=== PATIENT | female | born 1960 | race Hispanic/Latino ===

== ENCOUNTER 2016-08-04 08:13 | Emergency (ER) | payer MEDICARE, MEDICAID ==
[2016-08-04] MEDS ORDERED: Ibuprofen 800 MG TAB ONE (09:16)
[2016-08-04] MEDS ORDERED: Acetaminophen 500 MG TAB ONE (09:16)
--- NOTE | 2016-08-04 09:38 | ERRECORD ---
[facility] EMERGENCY RECORD HPI HIP (09:06 ABUS) CHIEF COMPLAINT: Patient presents for evaluation of pain, to the left hip, Denies swelling to the ankle, Denies tenderness, Denies weakness. HISTORIAN: History provided by patient, 56 yr old F with known arthritis of the left hip here with acute worsening over the past 3 days and not improving with Tylenol #3. No numbness or tingling, loss of bowel or bladder activity, and can ambulate but it does hurt. MECHANISM OF INJURY: Unknown mechanism. LOCATION: Symptoms are localized, most severe to the left ilium. SEVERITY: Currently symptoms are moderate, Current severity of pain rated as 8/10. QUALITY: Pain is dull in nature, described as aching, described as throbbing. TIME COURSE: Gradual onset of symptoms, 3, days priror to arrival. ASSOCIATED WITH: No associated symptoms. EXACERBATED BY: Patient's condition exacerbated by nothing. RELIEVED BY: Patient's condition relieved by nothing. ROS (09:16 ABUS) CONSTITUTIONAL: Negative constitutional review of systems, Historian denies chills, denies fever. CARDIOVASCULAR: Negative cardiovascular review of systems, Historian denies chest pain, denies palpitations. RESPIRATORY: Negative respiratory review of systems, Historian denies cough, denies shortness of breath. GI: Negative gastrointestinal review of systems, Historian denies abdominal pain, denies constipation, denies diarrhea, denies nausea, denies vomiting. GENITOURINARY FEMALE: Negative genitourinary review of systems, Historian denies dysuria, denies frequency. MUSCULOSKELETAL: Historian reports arthralgias, denies back pain, denies deformity, denies fall, denies injury, denies joint stiffness, denies joint swelling, denies myalgias. SKIN: Negative skin review of systems, Historian denies rash, denies skin changes. NEUROLOGIC: Negative neurologic review of systems, Historian denies headache. HEMO/LYMPHATIC: Normal hematologic/lymphatic system review, Historian denies abnormal blood clotting. PAST MEDICAL HISTORY (08:39 JPER) MEDICAL HISTORY: Notes: VERIFIED 08-04-16, Flu vaccine up to date, Tetanus immunization up to date, Pneumococcal vaccine not up to date, Past medical history includes history of hypertension, Past medical history includes history of hypertension, which has been treated, Patient is noncompliant, Past medical history includes history of hypertension, which has been treated, . ANEMIA. ARTHRITIS. FEMALE SURGICAL HISTORY: VERIRFIED 08-04-16, Patient's surgical history is not relevant to the management of &a-1R&a+25V*p+0X*[id number]*c152B*c15G*c2P*p-0X&a-25V&a+1RName: Jenna Aleman : 1960 F56 MedRec: [id number] AcctNum: [id number] Prepared: ThuAug 04, 2016 09:29 by Interface Page [address] [facility] EMERGENCY RECORD the case, Surgical history of section, Surgical history of hysterectomy, Surgical history of section, Surgical history of hysterectomy, BACK SURGERY,. PSYCHIATRIC HISTORY: Notes: NONE. SOCIAL HISTORY: Social History includes VERIFIED 08-04-16, Patient denies alcohol use, Patient denies drug use, Patient currently uses tobacco, smokes cigarettes, Lives at home, with family, Patient denies alcohol use, Patient denies drug use, Patient currently uses tobacco, smokes cigarettes, Patient smokes 1 PACK PER 2 DAYS, Patient denies alcohol use, Patient denies drug use, Patient currently uses tobacco, smokes cigarettes, Patient smokes 1/2 packs per day,. Patient denies alcohol use, Patient denies drug use, Patient currently uses tobacco. FAMILY HISTORY: No known family hisotry. KNOWN ALLERGIES Sulfa (Sulfonamide Antibiotics): Reaction: Hives, Severity: Moderate, Source: Patient CURRENT MEDICATIONS (08:39 JPER) lisinopril: TABLET : Strength - 10 mg : ORAL Patient Dose: 2 tab(s) Oral once a day (in the morning). Fioricet: TABLET : Strength - 50 mg-325 mg-40 mg : ORAL Patient Dose: 2 tab(s) Oral every 4 hours prn. fluticasone: SPRAY, SUSPENSION : Strength - 50 mcg : NASAL Patient Dose: 2 spray(s) NASAL once a day.2 squirts each nostril daily for congestion and drainage. Advair Diskus: BLISTER, WITH INHALATION DEVICE : Strength - 250 mcg-50 mcg/Dose : INHALATION Patient Dose: 2 puff(s) 2 times a day. Flexeril: TABLET : Strength - 5 mg : ORAL Patient Dose: 5 mg Oral every 8 hours PRN. naproxen: TABLET : Strength - 500 mg : ORAL Patient Dose: 1 tab(s) Oral once a day (at bedtime). Tylenol-Codeine #3: TABLET : Strength - 300 mg-30 mg : ORAL Patient Dose: 1-2 tab(s) Oral every 4 hours prn. VITAL SIGNS VITAL SIGNS: BP: 178/104, Pulse: 87, Resp: 18, Temp: 97.8 (Oral), O2 sat: 100 on Room Air, Time: 08/04/2016 08:35. (08:35 JPER) BP: 166/98, Pulse: 80, Resp: 18, Temp: 97.8, O2 sat: 100 on RA, Time: 08/04/2016 09:25. (09:25 JPER) PHYSICAL EXAM (09:16 ABUS) &a-1R&a+25V*p+0X*[id number]*c152B*c15G*c2P*p-0X&a-25V&a+1RName: Jenna Aleman : 1960 F56 MedRec: [id number] AcctNum: [id number] Prepared: ThuAug 04, 2016 09:29 by Interface Page [address] [facility] EMERGENCY RECORD CONSTITUTIONAL: Vital signs reviewed, Patient afebrile, Pulse normal, Blood pressure normal, Respiratory rate normal, Patient appears non toxic, Patient appears pain free, Patient alert and oriented to person, place and time. NECK: Neck exam normal, Neck exam included findings of normal range of motion, Trachea midline, no meningeal signs, no cervical adenopathy, no tenderness. RESPIRATORY CHEST: Respiratory and chest exam normal, Respiratory exam included findings of no respiratory distress, Breath sounds clear. CARDIOVASCULAR: Cardiovascular assessment normal, Cardiovascular exam included findings of heart rate regular rate and rhythm, Heart sounds normal. ABDOMEN FEMALE: Abdominal exam included findings of abdomen nontender, Bowel sounds normal, no distension, no mass, no pulsatile masses, no peritoneal signs, no rigidity, no guarding, no rebound, Rovsing's sign absent. BACK: Back exam normal, Back exam included findings of normal inspection, range of motion normal, no tenderness. LOWER EXTREMITY: Motor strength normal, Sensation intact, Posterior tibial pulse normal, Pedal pulse normal, distal pulses intact, capillary refill less than 2 seconds, distal motor intact, distal sensory intact, no cyanosis, no clubbing, no edema, tenderness to the left hip. NEURO: Neuro exam normal, Neuro exam findings include patient oriented to person, place and time, Speech normal, Gait normal, Sensation intact to major dermatomes of the lower extremity (left). SKIN: Skin exam normal, Skin exam included findings of skin warm, dry, and normal in color, no rash. MEDICATION ADMINISTRATION SUMMARY Drug Name: ibuprofen, Dose Ordered: 800 mg, Route: Oral, Status: Given, Time: 09:22 08/04/2016, Drug Name: acetaminophen oral, Dose Ordered: 500 mg, Route: Oral, Status: Given, Time: :08/04/2016, Drug Name: acetaminophen oral, Dose Ordered: 500 mg, Route: Oral, Status: Given, Time: 09:21 08/04/2016, Detailed record available in Medication Service section. DOCTOR NOTES (09:18 ABUS) TEXT: 56 yr old F with known arthritis of the left hip here with acute worsening over the past 3 days and not improving with Tylenol #3. No numbness or tingling, loss of bowel or bladder activity, and can ambulate but it does hurt. EXAM: Normal neuro (motor and sensory) exam of the left lower extremity with some limitation due to apparent pain. Normal pulses and skin temp to the left foot. DDX: Arthritis, Muscle strain, Muscle Spasm, Ligamentous Injury, Contusion, Soft Tissue Injury, Degenerative Joint Disease &a-1R&a+25V*p+0X*[id number]*c152B*c15G*c2P*p-0X&a-25V&a+1RName: Jenna Aleman : 1960 F56 MedRec: [id number] AcctNum: [id number] Prepared: ThuAug 04, 2016 09:29 by Interface Page [address] [facility] EMERGENCY RECORD PLAN: Analgesics Final Dispo: Dx: Arthralgia. D/C Home with regular follow up and return precautions. All results of testing and evaluation were shared with the patient who verbalized understanding and agreement with the plan of care. Level of Complexity / Medical Decision Making: low. PROBLEM LIST No recorded problems DIAGNOSIS (09:05 ABUS) FINAL: PRIMARY: Arthralgia of left hip. PRESCRIPTION (09:03 ABUS) traMADol: TABLET : 50 mg : ORAL : Quantity: 1 Unit: tab(s) Route: ORAL Schedule: every 8 hours PRN Dispense: 5 Unit: tab(s) May substitute. Refills: No Refills POTENTIAL SEVERE INTERACTION: Flexeril Override Rationale: Patient no longer on medication. NOTES: No Refills. ibuprofen: TABLET : 800 mg : ORAL : Quantity: 1 Unit: tab(s) Route: ORAL Schedule: every 8 hours PRN Dispense: 12 Unit: tab(s) May substitute. Refills: No Refills . NOTES: ^s=No Refills No Refills. DISPOSITION PATIENT: Disposition Type: Discharge, Disposition: *Discharge Home, Condition: Good. (09:05 ABUS) Patient left the department. (09:26 JEFE) Grant: PRASHANT=MD Renee, Armando MAYBERRY=KISHA Brothers, Tammy &a-1R&a+25V*p+0X*[id number]*c152B*c15G*c2P*p-0X&a-25V&a+1RName: Jenna Aleman : 1960 F56 MedRec: [id number] AcctNum: [id number] Prepared: ThuAug 04, 2016 09:29 by Interface Page 4 of 4 pMD MTDD
--- NOTE | 2016-08-04 09:47 | PICIS ---
[facility] EMERGENCY RECORD TRIAGE (08:39 JPER) PATIENT: NAME: Jenna Aleman, AGE: 56, GENDER: female, : Sat 1960, TIME OF GREET: ThuAug 04, 2016 08:13, PREFERRED LANGUAGE: Portuguese, RACE: or , ETHNICITY: or , FALL RISK: NO, ECODE BILLING MAP: [facility], SSN: [id number], Zip Code: [address], KG WEIGHT: 93.89, PHONE: , , , PERSON ID: [id number], PCP: DO Cooper Hillary. (08:39 JPER) COMPLAINT: LT HIP & LEG PAIN. (08:39 JPER) ADMISSION: URGENCY: 4 Non Urgent, ADMISSION SOURCE: Home, TRANSPORT: Walk-in, BED: ED -03. (08:39 JPER) ASSESSMENT: Assessment: PT C/O FLARE UP OF CHRONIC LEFT HIP AND LEG PAIN; WAS UNABLE TO GO TO WORK TODAY; SAYS SHE HAS THIS X 10 DAYS WORSENING. (08:39 JPER) PAIN: Patient complains of pain described as, shooting, on a scale 0-10 patient rates pain as 10, Pain is constant, No aggravating factors, No relieving factors. (08:39 JPER) IMMUNIZATIONS: Flu vaccine up to date, Tetanus immunization up to date, Pneumococcal vaccine up to date. (08:39 JPER) SIRS SCORING: Heart Rate 55-109 (0), Temp range 96.8-101.1 (0), respiratory rate 12-24 (0), Mental Status altered: no (0). (08:39 JPER) TRIAGE SCREENING: Patient denies suicidal ideation, Patient denies presence of domestic violence. (08:39 JPER) PROVIDERS: TRIAGE NURSE: Tammy Brothers RN. (08:39 JPER) VITAL SIGNS: BP 178/104, Pulse 87, Resp 18, Temp 97.8, (Oral), O2 Sat 100, on Room Air, Time 08/04/2016 08:35. (08:35 JPER) PREVIOUS VISIT ALLERGIES: Sulfa (Sulfonamide Antibiotics). (08:39 JPER) KNOWN ALLERGIES Sulfa (Sulfonamide Antibiotics): Reaction: Hives, Severity: Moderate, Source: Patient CURRENT MEDICATIONS (08:39 JPER) lisinopril: TABLET : Strength - 10 mg : ORAL Patient Dose: 2 tab(s) Oral once a day (in the morning). Fioricet: TABLET : Strength - 50 mg-325 mg-40 mg : ORAL Patient Dose: 2 tab(s) Oral every 4 hours prn. fluticasone: SPRAY, SUSPENSION : Strength - 50 mcg : NASAL Patient Dose: 2 spray(s) NASAL once a day.2 squirts each nostril daily for congestion and drainage. Advair Diskus: BLISTER, WITH INHALATION DEVICE : Strength - 250 mcg-50 mcg/Dose : INHALATION Patient Dose: 2 puff(s) 2 times a day. Flexeril: &a-1R&a+25V*p+0X*l1564A*c152B*c15G*c2P*p-0X&a-25V&a+1RName: Jenna Aleman : 1960 F56 MedRec: [id number] AcctNum: [id number] Prepared: ThuAug 04, 2016 09:35 by Interface Page 1 of 7 pMD [facility] EMERGENCY RECORD TABLET : Strength - 5 mg : ORAL Patient Dose: 5 mg Oral every 8 hours PRN. naproxen: TABLET : Strength - 500 mg : ORAL Patient Dose: 1 tab(s) Oral once a day (at bedtime). Tylenol-Codeine #3: TABLET : Strength - 300 mg-30 mg : ORAL Patient Dose: 1-2 tab(s) Oral every 4 hours prn. VITAL SIGNS VITAL SIGNS: BP: 178/104, Pulse: 87, Resp: 18, Temp: 97.8 (Oral), O2 sat: 100 on Room Air, Time: 08/04/2016 08:35. (08:35 JPER) BP: 166/98, Pulse: 80, Resp: 18, Temp: 97.8, O2 sat: 100 on RA, Time: 08/04/2016 09:25. (09:25 JPER) NURSING ASSESSMENT: EXTREMITY LOWER (08:45 JPER) CONSTITUTIONAL: Patient arrives ambulatory, Gait steady, History obtained from patient, Patient appears, uncomfortable, Patient cooperative, Patient alert, Oriented to person, place and time, Skin warm, Skin dry, Skin normal in color, Mucous membranes pink, Mucous membranes moist, Patient is well-groomed, Patient complains of LEFT HIP AND LEG PAIN. PAIN: shooting pain, to the left hip, to the left upper leg, to the left lower leg, on a scale 0-10 patient rates pain as 10, Pain exacerbated by nothing, Nothing has been tried to alleviate the pain. LEFT LOWER EXTREMITY: Left lower extremity assessment findings include capillary refill less than 2 seconds, Skin color normal, Skin temperature warm, Distal sensation intact, Muscle tone normal. RIGHT LOWER EXTREMITY: Right lower extremity assessment findings include capillary refill less than 2 seconds, Skin color normal, Skin temperature warm, Distal sensation intact, Muscle tone normal. NOTES: Emotional support needed and given. NURSING PROCEDURE: DISCHARGE NOTE (09:25 JPER) DISCHARGE: Patient discharged to home, ambulating without assistance, driving self, unaccompanied, Summary of Care printed/ provided, Patient requested and was provided an electronic copy of Discharge Instructions, Transition record given to patient, Discharge instructions given to patient, Prescriptions given and instructions on side effects given, Above person(s) verbalized understanding of discharge instructions and follow-up care, Patient treated and evaluated by physician. BELONGINGS: Belongings remain with patient, Valuables remain with patient. NOTES: Emotional support needed and given, Patient tolerated procedure well. VITAL SIGNS: BP: 166, / 98, Pulse: 80, Resp: 18, Temp: 97.8, O2 sat: 100, on: RA. MEDICATION ADMINISTRATION SUMMARY &a-1R&a+25V*p+0X*f4750W*c152B*c15G*c2P*p-0X&a-25V&a+1RName: AshJenna : 1960 F56 MedRec: [id number] AcctNum: [id number] Prepared: ThuAug 04, 2016 09:35 by Interface Page 2 of 7 pMD [facility] EMERGENCY RECORD Drug Name: ibuprofen, Dose Ordered: 800 mg, Route: Oral, Status: Given, Time: 09:22 08/04/2016, Drug Name: acetaminophen oral, Dose Ordered: 500 mg, Route: Oral, Status: Given, Time: 09:08/04/2016, Drug Name: acetaminophen oral, Dose Ordered: 500 mg, Route: Oral, Status: Given, Time: 09:21 08/04/2016, Detailed record available in Medication Service section. MEDICATION SERVICE acetaminophen oral: Order: acetaminophen oral (acetaminophen) - Dose: 500 mg : Oral Schedule: Now Ordered by: Armando Duran MD Entered by: Armando Duran MD ThuAug 04, 2016 09:15 Documented as given by: Tammy Brothers RN ThuAug 04, 2016 09:21 Patient, Medication, Dose, Route and Time verified prior to administration. Amount given: 500MG, Site: Medication administered P.O., Correct patient, time, route, dose and medication confirmed prior to administration, Patient advised of actions and side-effects prior to administration, Allergies confirmed and medications reviewed prior to administration, Administered by CORDELL BEARD. acetaminophen oral: Order: acetaminophen oral (acetaminophen) - Dose: 500 mg : Oral Schedule: Now Ordered by: Armando Duran MD Entered by: Armando Duran MD ThuAug 04, 2016 09:02 Documented as given by: Tammy Brothers RN ThuAug 04, 2016 09:22 Patient, Medication, Dose, Route and Time verified prior to administration. Amount given: 500MG, Site: Medication administered P.O., Correct patient, time, route, dose and medication confirmed prior to administration, Patient advised of actions and side-effects prior to administration, Allergies confirmed and medications reviewed prior to administration, Administered by CORDELL BEARD. ibuprofen: Order: ibuprofen - Dose: 800 mg : Oral Schedule: Now Ordered by: Armando Duran MD Entered by: Armando Duran MD ThuAug 04, 2016 08:59 Documented as given by: Tammy Brothers RN ThuAug 04, 2016 09:22 Patient, Medication, Dose, Route and Time verified prior to administration. Amount given: 800MG, Site: Medication administered P.O., Correct patient, time, route, dose and medication confirmed prior to administration, Patient advised of actions and side-effects prior to administration, Allergies confirmed and medications reviewed prior to administration, Administered by CORDELL BEARD, Patient in position of comfort, Side rails up, Cart in lowest position, Family at bedside. HPI HIP (09:06 ABUS) &a-1R&a+25V*p+0X*[id number]*c152B*c15G*c2P*p-0X&a-25V&a+1RName: Jenna Aleman : 1960 F56 MedRec: [id number] AcctNum: [id number] Prepared: ThuAug 04, 2016 09:35 by Interface Page 3 of 7 pMD [facility] EMERGENCY RECORD CHIEF COMPLAINT: Patient presents for evaluation of pain, to the left hip, Denies swelling to the ankle, Denies tenderness, Denies weakness. HISTORIAN: History provided by patient, 56 yr old F with known arthritis of the left hip here with acute worsening over the past 3 days and not improving with Tylenol #3. No numbness or tingling, loss of bowel or bladder activity, and can ambulate but it does hurt. MECHANISM OF INJURY: Unknown mechanism. LOCATION: Symptoms are localized, most severe to the left ilium. SEVERITY: Currently symptoms are moderate, Current severity of pain rated as 8/10. QUALITY: Pain is dull in nature, described as aching, described as throbbing. TIME COURSE: Gradual onset of symptoms, 3, days priror to arrival. ASSOCIATED WITH: No associated symptoms. EXACERBATED BY: Patient's condition exacerbated by nothing. RELIEVED BY: Patient's condition relieved by nothing. ROS (09:16 ABUS) CONSTITUTIONAL: Negative constitutional review of systems, Historian denies chills, denies fever. CARDIOVASCULAR: Negative cardiovascular review of systems, Historian denies chest pain, denies palpitations. RESPIRATORY: Negative respiratory review of systems, Historian denies cough, denies shortness of breath. GI: Negative gastrointestinal review of systems, Historian denies abdominal pain, denies constipation, denies diarrhea, denies nausea, denies vomiting. GENITOURINARY FEMALE: Negative genitourinary review of systems, Historian denies dysuria, denies frequency. MUSCULOSKELETAL: Historian reports arthralgias, denies back pain, denies deformity, denies fall, denies injury, denies joint stiffness, denies joint swelling, denies myalgias. SKIN: Negative skin review of systems, Historian denies rash, denies skin changes. NEUROLOGIC: Negative neurologic review of systems, Historian denies headache. HEMO/LYMPHATIC: Normal hematologic/lymphatic system review, Historian denies abnormal blood clotting. PAST MEDICAL HISTORY (08:39 JPER) MEDICAL HISTORY: Notes: VERIFIED 08-04-16, Flu vaccine up to date, Tetanus immunization up to date, Pneumococcal vaccine not up to date, Past medical history includes history of hypertension, Past medical history includes history of hypertension, which has been treated, Patient is noncompliant, Past medical history includes history of hypertension, which has been treated, . ANEMIA. ARTHRITIS. FEMALE SURGICAL HISTORY: VERIRFIED 08-04-16, Patient's surgical history is not relevant to the management of the case, Surgical history of section, Surgical history of &a-1R&a+25V*p+0X*a3999Y*c152B*c15G*c2P*p-0X&a-25V&a+1RName: Jenna Aleman : 1960 F56 MedRec: [id number] AcctNum: [id number] Prepared: ThuAug 04, 2016 09:35 by Interface Page 4 of 7 pMD [facility] EMERGENCY RECORD hysterectomy, Surgical history of section, Surgical history of hysterectomy, BACK SURGERY,. PSYCHIATRIC HISTORY: Notes: NONE. SOCIAL HISTORY: Social History includes VERIFIED 08-04-16, Patient denies alcohol use, Patient denies drug use, Patient currently uses tobacco, smokes cigarettes, Lives at home, with family, Patient denies alcohol use, Patient denies drug use, Patient currently uses tobacco, smokes cigarettes, Patient smokes 1 PACK PER 2 DAYS, Patient denies alcohol use, Patient denies drug use, Patient currently uses tobacco, smokes cigarettes, Patient smokes 1/2 packs per day,. Patient denies alcohol use, Patient denies drug use, Patient currently uses tobacco. FAMILY HISTORY: No known family hisotry. PHYSICAL EXAM (09:16 ABUS) CONSTITUTIONAL: Vital signs reviewed, Patient afebrile, Pulse normal, Blood pressure normal, Respiratory rate normal, Patient appears non toxic, Patient appears pain free, Patient alert and oriented to person, place and time. NECK: Neck exam normal, Neck exam included findings of normal range of motion, Trachea midline, no meningeal signs, no cervical adenopathy, no tenderness. RESPIRATORY CHEST: Respiratory and chest exam normal, Respiratory exam included findings of no respiratory distress, Breath sounds clear. CARDIOVASCULAR: Cardiovascular assessment normal, Cardiovascular exam included findings of heart rate regular rate and rhythm, Heart sounds normal. ABDOMEN FEMALE: Abdominal exam included findings of abdomen nontender, Bowel sounds normal, no distension, no mass, no pulsatile masses, no peritoneal signs, no rigidity, no guarding, no rebound, Rovsing's sign absent. BACK: Back exam normal, Back exam included findings of normal inspection, range of motion normal, no tenderness. LOWER EXTREMITY: Motor strength normal, Sensation intact, Posterior tibial pulse normal, Pedal pulse normal, distal pulses intact, capillary refill less than 2 seconds, distal motor intact, distal sensory intact, no cyanosis, no clubbing, no edema, tenderness to the left hip. NEURO: Neuro exam normal, Neuro exam findings include patient oriented to person, place and time, Speech normal, Gait normal, Sensation intact to major dermatomes of the lower extremity (left). SKIN: Skin exam normal, Skin exam included findings of skin warm, dry, and normal in color, no rash. EVENTS TRANSFER: Triage to Emergency Main ED -03. (ThuAug 04, 2016 08:39 JPER) Removed from Emergency Main ED -03. (09:26 JPER) &a-1R&a+25V*p+0X*j5458S*c152B*c15G*c2P*p-0X&a-25V&a+1RName: Jenna Aleman : 1960 F56 MedRec: [id number] AcctNum: [id number] Prepared: ThuAug 04, 2016 09:35 by Interface Page 5 of 7 pMD [facility] EMERGENCY RECORD DOCTOR NOTES (09:18 ABUS) TEXT: 56 yr old F with known arthritis of the left hip here with acute worsening over the past 3 days and not improving with Tylenol #3. No numbness or tingling, loss of bowel or bladder activity, and can ambulate but it does hurt. EXAM: Normal neuro (motor and sensory) exam of the left lower extremity with some limitation due to apparent pain. Normal pulses and skin temp to the left foot. DDX: Arthritis, Muscle strain, Muscle Spasm, Ligamentous Injury, Contusion, Soft Tissue Injury, Degenerative Joint Disease PLAN: Analgesics Final Dispo: Dx: Arthralgia. D/C Home with regular follow up and return precautions. All results of testing and evaluation were shared with the patient who verbalized understanding and agreement with the plan of care. Level of Complexity / Medical Decision Making: low. PROBLEM LIST No recorded problems DIAGNOSIS (09:05 ABUS) FINAL: PRIMARY: Arthralgia of left hip. DISPOSITION PATIENT: Disposition Type: Discharge, Disposition: *Discharge Home, Condition: Good. (09:05 ABUS) Patient left the department. (09:26 JPER) INSTRUCTION (09:06 ABUS) DISCHARGE: ARTHRALGIA. FOLLOWUP: DO Cooper Hillary, [facility], [address] [place] [address], , Follow up with Primary Care Physician in 2-3 days. SPECIAL: As discussed in the ED, please keep any upcoming appointments with your primary doctor or call the referral provided to you today to establish a follow up evaluation or ongoing medical care. Please come back if you start to have fever, vomiting, worsening leg pain, difficulty walking, or any symptoms that concern you. PRESCRIPTION (09:03 ABUS) traMADol: TABLET : 50 mg : ORAL : Quantity: 1 Unit: tab(s) Route: ORAL Schedule: every 8 hours PRN Dispense: 5 Unit: tab(s) May substitute. Refills: No Refills POTENTIAL SEVERE INTERACTION: Flexeril Override Rationale: Patient no longer on medication. NOTES: No Refills. ibuprofen: TABLET : 800 mg : ORAL : Quantity: 1 Unit: tab(s) Route: ORAL Schedule: every 8 hours PRN Dispense: 12 Unit: tab(s) &a-1R&a+25V*p+0X*e5455U*c152B*c15G*c2P*p-0X&a-25V&a+1RName: Jenna Aleman : 1960 F56 MedRec: [id number] AcctNum: [id number] Prepared: ThuAug 04, 2016 09:35 by Interface Page 6 of 7 pMD [facility] EMERGENCY RECORD May substitute. Refills: No Refills . NOTES: ^s=No Refills No Refills. IMAGING (09:25 JPER) *DISCHARGE INSTRUCTIONS RECEIPT: Image captured from scanner. *SUPPLY CHARGE SHEET: Image captured from scanner. ADMIN DIGITAL SIGNATURE: MD Duran Anthony. (09:20 PRASHANT) KISHA Brothers Jana. (09:26 JEFE) Grant: PRASHANT=MD Duran Anthony JPER=KISHA Brothers Jana &a-1R&a+25V*p+0X*b6505S*c152B*c15G*c2P*p-0X&a-25V&a+1RName: Jenna Aleman : 1960 F56 MedRec: [id number] AcctNum: [id number] Prepared: ThuAug 04, 2016 09:35 by Interface Page 7 of 7 pMD MTDD
== END 2016-08-04 09:25 | disposition home or self-care (01) ==
LOC: MADERS 08:13
DX: M25.552 Pain in left hip (principal); I10 Essential (primary) hypertension; Z79.899 Other long term (current) drug therapy
CPT/HCPCS: 99283

== ENCOUNTER 2016-08-30 17:02 | Emergency (ER) | payer MEDICAID, MEDICARE, OTHER ==
[2016-08-30] MEDS ORDERED: Ketorolac Tromethamine 30 MG/ML VIAL ONE (18:35)
--- NOTE | 2016-08-30 19:47 | RAD ---
LEFT FEMUR TWO VIEW 08/30/16 HISTORY: Pain COMPARISON: None. FINDINGS: No acute fracture or malalignment. No significant suprapatellar effusion. IMPRESSION: No acute fracture or malalignment left femur. POS: [facility]
--- NOTE | 2016-08-30 20:24 | RAD ---
LEFT HIP TWO VIEW 08/30/16 HISTORY: Pain. COMPARISON: None. FINDINGS: No acute fracture or malalignment. There are ring osteophytes of the femoral head and neck junction. IMPRESSION: Ring osteophytes femoral head and neck junction without acute fracture or malalignment. POS: [facility]
== END 2016-08-30 18:45 | disposition home or self-care (01) ==
LOC: MADERS 17:02
DX: M16.12 Unilateral primary osteoarthritis, left hip (principal); I10 Essential (primary) hypertension; F17.210 Nicotine dependence, cigarettes, uncomplicated
CPT/HCPCS: 96372; J1885

== ENCOUNTER 2016-10-11 19:45 | Emergency (ER) | payer MEDICARE, MEDICAID ==
[2016-10-11] MEDS ORDERED: Ondansetron ODT 4 MG TAB ONE (20:11)
[2016-10-11] MEDS ORDERED: Naproxen 500 MG TAB ONE (20:11)
[2016-10-11] MEDS ORDERED: AMOXicillin 250 MG CAP ONE (20:11)
== END 2016-10-11 20:20 | disposition home or self-care (01) ==
LOC: MADERS 19:45
DX: H65.93 Unspecified nonsuppurative otitis media, bilateral (principal); I10 Essential (primary) hypertension; F17.210 Nicotine dependence, cigarettes, uncomplicated; Z79.899 Other long term (current) drug therapy
CPT/HCPCS: 99283; Q0162

== ENCOUNTER 2016-10-14 18:21 | Emergency (ER) | payer MEDICAID, MEDICARE, OTHER ==
[~2016-10-14 18:21] MED LIST: Sodium Chloride 0.9% 1,000 ML BAG ONE; Sodium Chloride 0.9% 100 ML BAG ONE
[2016-10-14] MEDS ORDERED: methylPREDNISolone Sod Succ/PF 125 MG/2 ML VIAL ONE (19:10)
[2016-10-14] MEDS ORDERED: Piperacillin/Tazobactam 3.375 GM VIAL ONE (19:10)
[2016-10-14 19:17] LABS: ALT (SGPT) 21 U/L (0-55); AST (SGOT) 16 U/L (5-34); Albumin 3.9 g/dL (3.5-5.0); Alkaline Phosphatase 78 U/L (40-150); Anion Gap 13 mmol/L (10-20); BUN (Urea Nitrogen) 14 mg/dL (9.8-20.1); Bilirubin, Total Less than 0.3 mg/dL (0.2-1.2); Calc. Creatinine Clearance 0 mL/min (70-130); Calcium 9.3 mg/dL (7.8-10.44); Carbon Dioxide 25 mmol/L (22-29); Chloride 108 mmol/L (98-107); Estimated GFR-MDRD 77; Globulin 3.1 g/dL (2.4-3.5); Glucose 99 mg/dL (70-105); Sodium 142 mmol/L (136-145)
[2016-10-14 19:18] LABS: MONO NEGATIVE CONTROL ZONE White (Negative) (White); MONO POSITIVE CONTROL Pink Line (Positive) (PINK/RED); Mononucleosis NEGATIVE (NEGATIVE)
[2016-10-14 19:33] LABS: Band 3 % (5-11); Eosinophils 2 % (0-10); Hemoglobin 13.9 g/dL (12.0-16.0); Lymphocytes 4 % (21-51); MDiff Complete? YES; Mean Corpuscular HGB CONC 32.5 g/dL (32.0-36.0); Mean Corpuscular Hemoglobin 29.6 pg (27.0-31.0); Mean Platelet Volume 7.7 fL (7.4-10.4); Monocytes 5 % (0-10); Neutrophil 86 % (42-75); Platelet Count 234 thou/uL (130-400); RBC Distribution Width 12.6 % (11.5-14.5); Red Blood Cell (RBC) Count 4.71 mill/uL (4.20-5.40); White Blood Cell (WBC) Count 16.6 thou/uL (4.8-10.8)
--- NOTE | 2016-10-14 21:20 | RAD ---
TWO VIEWS NECK SOFT TISSUES 10/14/16 HISTORY: Throat pain. FINDINGS: The epiglottis does appear mildly prominent on this exam. However, the airway is patent at this leve l. Prevertebral soft tissues are within normal limits. Degenerative changes are seen in the cervical spine. IMPRESSION: Mild prominence of the epiglottis. Epiglottitis could not be entirely excluded based on this exam. T he airway does appear patent based on lateral view. POS: [facility]
== END 2016-10-14 20:41 | disposition short-term general hospital (02) ==
LOC: MADERS 18:21
DX: J02.9 Acute pharyngitis, unspecified (principal); I10 Essential (primary) hypertension; J45.909 Unspecified asthma, uncomplicated; D64.9 Anemia, unspecified; F17.210 Nicotine dependence, cigarettes, uncomplicated; Z79.2 Long term (current) use of antibiotics; Z79.899 Other long term (current) drug therapy
CPT/HCPCS: 36415; 70360; 80053; 85025; 86308; 87081; 87430; 94640; 96365; 96375; J2543; J2930; J7050

== ENCOUNTER 2017-02-01 18:20 | Emergency (ER) | payer OTHER, MEDICARE ==
[2017-02-01 18:58] LABS: Clarity Clear (Clear); Specific Gravity, Urine 1.028 (1.002-1.036)
[2017-02-01 18:59] LABS: Bacteria/HPF 1+ HPF (None Seen); Bilirubin Negative (Negative); Blood, Urine Moderate (Negative); Glucose, Urine (Dipstick) Negative (Negative); Hyaline Casts/LPF NONE SEEN LPF (0-3 Hyaline); Leukocyte Negative (Negative); Nitrite Negative (Negative); Protein, Urine (Dipstick) 30 mg/dL (Neg-Trace); RBC/HPF 0-3 HPF (0-3); Urobilinogen 0.2 mg/dL (0.2-1.0); WBC/HPF 0-3 HPF (0-3)
[2017-02-01] MEDS ORDERED: Naproxen 500 MG TAB ONE (19:25)
[2017-02-01] MEDS ORDERED: HYDROcodone/Acetaminophen 10/325 mg Tablet ONE (19:25)
[2017-02-01] MEDS ORDERED: Ciprofloxacin 500 MG TAB ONE (20:29)
[2017-02-01] MEDS ORDERED: Phenazopyridine HCl 97.5 MG TABLET ONE (20:29)
--- NOTE | 2017-02-01 22:00 | CT ---
CT ABDOMEN AND PELVIS WITHOUT CONTRAST: Clinical history: Right sided abdominal pain. FINDINGS: Absence of oral and IV contrast reduces the sensitivity of the exam to evaluate solid organs and bow el. The lungs bases are unremarkable. No free air or free fluid is seen in the abdomen or pelvis. No katarina cified gallstones are identified. A normal appearing appendix is noted. No calculi are noted in the kidneys, ureters, or urinary bladder. There are vascular calcifications without evidence of aneurysm al dilatation of the abdominal aorta. There are mild degenerative changes in the spine. IMPRESSION: No CT evidence of renal calculi, obstruction, or appendicitis. POS: [facility]
== END 2017-02-01 20:36 | disposition home or self-care (01) ==
LOC: MADERS 18:20
DX: R30.0 Dysuria (principal); R31.9 Hematuria, unspecified; J45.909 Unspecified asthma, uncomplicated; I10 Essential (primary) hypertension; D64.9 Anemia, unspecified; F17.210 Nicotine dependence, cigarettes, uncomplicated
CPT/HCPCS: 74176; 87086

== ENCOUNTER 2017-02-24 16:55 | Emergency (ER) | payer OTHER, MEDICARE ==
[~2017-02-24 16:55] MED LIST changes: -Sodium Chloride 0.9% 100 ML BAG ONE
[2017-02-24 17:22] LABS: Bilirubin Negative (Negative); Blood, Urine Small (Negative); Clarity Hazy (Clear); Glucose, Urine (Dipstick) Negative (Negative); Leukocyte Small (Negative); Nitrite Negative (Negative); Protein, Urine (Dipstick) Negative (Neg-Trace); Specific Gravity, Urine 1.025 (1.005-1.030); Urobilinogen 0.2 mg/dL (0.2-1.0)
[2017-02-24] MEDS ORDERED: Promethazine HCl 25 MG/ML VIAL ONE (17:31)
[2017-02-24] MEDS ORDERED: Loperamide HCl 2 MG CAP ONE (17:31)
[2017-02-24] MEDS ORDERED: Ondansetron HCl/PF 4 MG/2 ML Vial ONE (17:31)
[2017-02-24 17:35] LABS: Bacteria/HPF 1+ HPF (None Seen); RBC/HPF 0-3 HPF (0-3)
[2017-02-24 17:36] LABS: Yeast-All Forms 1+ HPF (None Seen)
== END 2017-02-24 18:50 | disposition home or self-care (01) ==
LOC: MADERS 16:55
DX: K52.9 Noninfective gastroenteritis and colitis, unspecified (principal); J45.909 Unspecified asthma, uncomplicated; I10 Essential (primary) hypertension; F17.210 Nicotine dependence, cigarettes, uncomplicated
CPT/HCPCS: 81001; 96365; 96375; J2405; J2550; J7050

== ENCOUNTER 2017-06-23 13:46 | Emergency (ER) | payer OTHER, MEDICARE ==
--- NOTE | 2017-06-23 14:42 | RAD ---
LEFT HAND THREE VIEWS: Date: 06-23-17 Comparison: None. History: Pain, injury. FINDINGS: There is degenerative change at the first interphalangeal joint and first carpal metacarpal joint. Th ere is degenerative change involving the second and third distal interphalangeal joint. There is no displaced fracture or evidence of dislocation seen. IMPRESSION: No acute osseous abnormality appreciated. POS: [facility]
== END 2017-06-23 14:55 | disposition home or self-care (01) ==
LOC: MADERS 13:46
DX: S63.92XA Sprain of unspecified part of left wrist and hand, initial encounter (principal); I10 Essential (primary) hypertension; D64.9 Anemia, unspecified; F17.210 Nicotine dependence, cigarettes, uncomplicated; J45.909 Unspecified asthma, uncomplicated; Z79.899 Other long term (current) drug therapy; W22.8XXA Striking against or struck by other objects, initial encounter; Y92.69 Other specified industrial and construction area as the place of occurrence of the external cause; Y99.0 Civilian activity done for income or pay

== ENCOUNTER 2017-09-10 11:03 | Emergency (ER) | payer MEDICARE ==
[2017-09-10] MEDS ORDERED: Oseltamivir 75 MG CAP ONE (11:51)
== END 2017-09-10 12:10 | disposition home or self-care (01) ==
LOC: MADERS 11:03
DX: J10.1 Influenza due to other identified influenza virus with other respiratory manifestations (principal); J45.909 Unspecified asthma, uncomplicated; I10 Essential (primary) hypertension; D64.9 Anemia, unspecified; M19.90 Unspecified osteoarthritis, unspecified site; F17.210 Nicotine dependence, cigarettes, uncomplicated; Z79.899 Other long term (current) drug therapy
CPT/HCPCS: 99283

== ENCOUNTER 2017-10-11 01:21 | Emergency (ER) | payer MEDICARE ==
[2017-10-11] MEDS ORDERED: Aspirin 325 MG TAB ONE (01:59)
[2017-10-11] MEDS ORDERED: cloNIDine 0.1 MG TAB ONE (01:59)
[2017-10-11] MEDS ORDERED: Lorazepam 2 MG/ML VIAL ONE (02:10)
[2017-10-11] MEDS ORDERED: methylPREDNISolone Sod Succ/PF 125 MG/2 ML VIAL ONE (02:10)
[2017-10-11] MEDS ORDERED: Ondansetron HCl/PF 4 MG/2 ML Vial ONE (02:10)
[2017-10-11] MEDS ORDERED: Dexamethasone 10 MG/ML VIAL ONE (02:10)
[2017-10-11] MEDS ORDERED: Benzonatate 100 MG CAP ONE (02:10)
[2017-10-11] MEDS ORDERED: Sterile Water 10 ML ONE (02:12)
[2017-10-11 02:17] LABS: PTT 28.1 SEC (22.9-36.1); Prothrombin Time 13.3 SEC (12.0-14.7)
[2017-10-11 02:27] LABS: #Basophils 0.1 thou/uL (0.0-0.2); #Eosinphils 0.2 thou/uL (0.0-0.7); #Lymphocytes 2.5 thou/uL (1.20-3.40); #Monocytes 0.6 thou/uL (0.11-0.59); #Neutrophils 8.2 thou/uL (1.40-6.50); %Basophils 0.7 % (0.0-1.0); %Eosinophils 1.4 % (0.0-10.0); %Lymphocytes 21.3 % (21.0-51.0); %Monocytes 5.2 % (0.0-10.0); %Neutrophils 71.4 % (42.0-75.0); Hemoglobin 13.8 g/dL (12.0-16.0); Mean Corpuscular HGB CONC 33.4 g/dL (32.0-36.0); Mean Corpuscular Hemoglobin 29.6 pg (27.0-31.0); Mean Corpuscular Volume 88.6 fl (81.0-99.0); Mean Platelet Volume 7.1 fL (7.4-10.4); Platelet Count 267 thou/uL (130-400); RBC Distribution Width 12.6 % (11.5-14.5); Red Blood Cell (RBC) Count 4.64 mill/uL (4.20-5.40); White Blood Cell (WBC) Count 11.5 thou/uL (4.8-10.8)
[2017-10-11 02:29] LABS: ALT (SGPT) 22 U/L (8-55); AST (SGOT) 15 U/L (5-34); Albumin 4.3 g/dL (3.5-5.0); Alkaline Phosphatase 66 U/L (40-150); Anion Gap 14 mmol/L (10-20); BUN (Urea Nitrogen) 16 mg/dL (9.8-20.1); Bilirubin, Total 0.3 mg/dL (0.2-1.2); CK (CPK) 131 U/L (29-168); Calc. Creatinine Clearance 0 mL/min (70-130); Carbon Dioxide 24 mmol/L (22-29); Chloride 109 mmol/L (98-107); Estimated GFR-MDRD 77; Globulin 3.3 g/dL (2.4-3.5); Glucose 108 mg/dL (70-105); Potassium 3.8 mmol/L (3.5-5.1); Protein, Total 7.6 g/dL (6.0-8.3); Sodium 143 mmol/L (136-145)
[2017-10-11 02:35] LABS: CKMB 2.1 ng/mL (0-6.6); Troponin I Less than 0.010 ng/mL (< 0.028)
--- NOTE | 2017-10-11 09:48 | RAD ---
CHEST 1 VIEW: Date: 10/11/17 HISTORY: Chest pain. COMPARISON: 03/28/15. FINDINGS: Portable upright chest radiograph demonstrates an upper normal cardiac silhouette. Pulmonary vessels and hilum are normal. Costophrenic angles are clear. No consolidation or mass. No pneumothorax or oss eous abnormalities. IMPRESSION: No acute cardiopulmonary process. POS: [facility]
== END 2017-10-11 04:35 | disposition home or self-care (01) ==
LOC: MADERS 01:21
DX: I10 Essential (primary) hypertension (principal); F43.0 Acute stress reaction; J45.909 Unspecified asthma, uncomplicated; D64.9 Anemia, unspecified; F17.210 Nicotine dependence, cigarettes, uncomplicated; Z79.899 Other long term (current) drug therapy
CPT/HCPCS: 36415; 71045; 80053; 82553; 83880; 84484; 85025; 85610; 85730; 93005; 94640; 94760; 96374; 96375; A4216; J1100; J2060; J2405; J2930; J7620

== ENCOUNTER 2018-02-01 09:17 | Outpatient (CLI) | payer MEDICARE ==
[2018-02-01 09:48] LABS: #Basophils 0.1 thou/uL (0.0-0.2); #Eosinphils 0.3 thou/uL (0.0-0.7); #Lymphocytes 2.2 thou/uL (1.20-3.40); #Monocytes 0.5 thou/uL (0.11-0.59); #Neutrophils 4.9 thou/uL (1.40-6.50); %Basophils 1.1 % (0.0-1.0); %Eosinophils 4.3 % (0.0-10.0); %Lymphocytes 27.3 % (21.0-51.0); %Monocytes 6.1 % (0.0-10.0); %Neutrophils 61.2 % (42.0-75.0); Mean Corpuscular Hemoglobin 28.1 pg (27.0-31.0); Mean Corpuscular Volume 87.8 fL (78.0-98.0); Mean Platelet Volume 7.3 fL (7.4-10.4); Platelet Count 265 thou/uL (130-400); RBC Distribution Width 12.4 % (11.5-14.5); Red Blood Cell (RBC) Count 5.34 mill/uL (4.20-5.40); White Blood Cell (WBC) Count 8.1 thou/uL (4.8-10.8)
[2018-02-01 10:12] LABS: ALT (SGPT) 29 U/L (8-55); AST (SGOT) 18 U/L (5-34); Albumin 4.2 g/dL (3.5-5.0); Alkaline Phosphatase 69 U/L (40-150); Anion Gap 14 mmol/L (10-20); BUN (Urea Nitrogen) 16 mg/dL (9.8-20.1); Bilirubin, Total 0.3 mg/dL (0.2-1.2); Calc. Creatinine Clearance 0 mL/min (70-130); Calcium 9.3 mg/dL (7.8-10.44); Carbon Dioxide 24 mmol/L (22-29); Cardiac Risk 5.9 (Less than 4.5); Chloride 108 mmol/L (98-107); Cholesterol 196 mg/dl (< 200 Desired); Estimated GFR-MDRD 76; Globulin 3.2 g/dL (2.4-3.5); Glucose 96 mg/dL (70-105); HDL Cholesterol 33 mg/dL (>60 Neg Risk); LDL Cholesterol, Calculated 122 mg/dL; Potassium 4.3 mmol/L (3.5-5.1); Protein, Total 7.4 g/dL (6.0-8.3); Sodium 142 mmol/L (136-145); Triglycerides 204 mg/dL (Less than 150)
--- NOTE | 2018-02-01 10:24 | RAD ---
FOUR VIEWS OF THE RIGHT KNEE: DATE: 02/01/18. COMPARISON: None. HISTORY: Osteoarthritis. FINDINGS: There is mild lateral compartment narrowing. There is moderate medial compartment narrowing. There is patellofemoral joint space narrowing with p osterior patellar osteophyte formation. No knee joint effusion, displaced fracture, or evidence of d islocation seen. There is rounded calcification along the posterior aspect of the knee joint on the lateral view measu ring 1.3 cm. This suggests prominent intraarticular loose body. This could be better assessed via M RI or CT. IMPRESSION: Degenerative joint disease with probable prominent posterior intraarticular loose body, which could b e better assessed with cross-section imaging. No acute fracture or dislocation was seen. POS: [facility]
[2018-02-01 17:22] LABS: Hemoglobin A1c 5.7 % (4.0-6.0)
== END 2018-02-01 09:18 | disposition home or self-care (01) ==
LOC: MADLABBHPM 09:17 → EDSTATUS 09:18
PROVIDERS: ATTEND Family Medicine
DX: M17.11 Unilateral primary osteoarthritis, right knee (principal); I10 Essential (primary) hypertension
CPT/HCPCS: 36415; 80053; 80061; 83036; 85025

== ENCOUNTER 2018-02-12 11:43 | Emergency (ER) | payer MEDICARE ==
[2018-02-12] MEDS ORDERED: HYDROcodone/Acetaminophen 5/325 mg Tablet ONE (12:09)
--- NOTE | 2018-02-12 13:07 | RAD ---
RIGHT KNEE 4 VIEWS: Date: 02/12/18 HISTORY: Pain. COMPARISON: 02/01/18. FINDINGS: Stable degenerative change. No fracture. No malalignment. No joint effusion. Stable calcification nichol ng the posterior aspect of the knee joint. IMPRESSION: No significant interval change. POS: [facility]
== END 2018-02-12 13:05 | disposition home or self-care (01) ==
LOC: MADERS 11:43
DX: M25.561 Pain in right knee (principal); I10 Essential (primary) hypertension; J45.909 Unspecified asthma, uncomplicated; D64.9 Anemia, unspecified; M19.90 Unspecified osteoarthritis, unspecified site; F17.210 Nicotine dependence, cigarettes, uncomplicated; Z79.899 Other long term (current) drug therapy

== ENCOUNTER 2018-06-21 18:15 | Emergency (ER) | payer MEDICARE, MEDICAID ==
[2018-06-21 18:54] LABS: Bilirubin Negative (Negative); Blood, Urine Moderate (Negative); Clarity Hazy (Clear); Glucose, Urine (Dipstick) Negative (Negative); Leukocyte Negative (Negative); Nitrite Negative (Negative); Protein, Urine (Dipstick) Negative (Neg-Trace); Urobilinogen 0.2 mg/dL (0.2-1.0)
[2018-06-21 18:59] LABS: Bacteria/HPF 2+ HPF (None Seen); Squamous Epithelial 21-50 HPF (0-3); WBC/HPF 0-3 HPF (0-3)
[2018-06-21] MEDS ORDERED: Cyclobenzaprine 10 MG TAB ONE (19:44)
--- NOTE | 2018-06-21 20:50 | CT ---
CT ABDOMEN AND PELVIS WITHOUT CONTRAST ENHANCEMENT: HISTORY: Left-sided abdomen pain. History of stones. COMPARISON: 01/22/2017 FINDINGS: ABDOMEN: The lung bases are clear of any infiltrative process. There is some minimal atelectasis no katie, with some slight ground glass opacity to the lung bases, nonspecific. The liver and spleen show no focal abnormalities. There is suggestion of some fatty change to the li masoud. The pancreas and gallbladder regions are unremarkable. The right and left adrenal glands and the right and left kidneys are normal in size. No renal calcul i. No obstruction. No ureteral calculus. There is no significant periaortic or mesenteric lymphade nopathy. PELVIS: The appendix is unremarkable. I do not see any signs of adenopathy, mass, or free fluid. N o inflammatory process. IMPRESSION: No acute abnormalities of the abdomen or pelvis. No renal or ureteral calculi. POS: [facility]
== END 2018-06-21 19:53 | disposition home or self-care (01) ==
LOC: MADERS 18:15
DX: S39.82XA Other specified injuries of lower back, initial encounter (principal); I10 Essential (primary) hypertension; D64.9 Anemia, unspecified; M19.90 Unspecified osteoarthritis, unspecified site; F17.210 Nicotine dependence, cigarettes, uncomplicated; Z79.891 Long term (current) use of opiate analgesic; Z79.899 Other long term (current) drug therapy; X58.XXXA Exposure to other specified factors, initial encounter; Y93.K1 Activity, walking an animal
CPT/HCPCS: 74176; 81003; 81015